=== PATIENT | male | born 2000 | race Caucasian/White ===

== ENCOUNTER 2021-04-01 09:41 | Day surgery (SDC) | payer OTHER, SELFPAY ==
[2021-03-24 13:55] VITALS: BMI 27.0
--- NOTE | 2021-03-31 10:43 | HO.ANESPROP2 ---
Documented by User: Marlee Jacobo NP 03/31/21 10:45 HPI - Anesthesia Eval Consult details Narrative: 20yo M for Bilateral Horizontal Eye Muscle Recession/Resection,1 muscle per eye bilateral PCP cleared [facility] Past Medical History Medical History (Updated 03/24/21 @ 13:42 by Alicia Akhtar, RN) No pertinent past medical history Surgical History Surgical History (Updated 04/01/21 @ 12:13 by Terri Ribera MD) History of dental surgery No pertinent past surgical history Social History Social History (Updated 04/01/21 @ 12:14 by Terri Ribera MD) Household Members Other:: Parents Are you a primary senior care specialist to a significant other at home: No Do you presently have visiting nurse or other home services: No Patient Tobacco Use Status: Never used Tobacco Use of substances other than those prescribed or required for medical reasons: Yes Substance Use Type: Marijuana Substance Use Frequency: Occasionally Last Used Substance: Days (ago) Have you been hit, kicked, punched, or otherwise hurt by someone within the past year? If so, by whom?: No Are you DNR?: No Advance Directives: No Advance Directives Information Provided: No Advance Directives on File: No Recently lost weight without trying: No Eating poorly because of decreased appetite: No Nutrition Risks: No Nutritional Risk Meds Allergies Allergy/AdvReac Type Severity Reaction Status Date / Time No Known Allergies Allergy Verified 03/24/21 13:43 Home Medications Medication Instructions Recorded Confirmed Last Taken Type No Known Home Meds 03/24/21 03/24/21 Unknown History Exam Exam Date and Time: March 31, 2021 1043 Height,Weight and Vital Signs: Height 5 ft 6 in Weight 76 kg Assessment and Plan Assessment Anesthesia Assessment: Chart Reviewed Documented by User: Terri Ribera MD 04/01/21 13:24 [facility] Past Medical History Medical History (Updated 03/24/21 @ 13:42 by Alicia Akhtar RN) No pertinent past medical history Family History Family history of problems with anesthesia: No Surgical History Surgical History (Updated 04/01/21 @ 12:13 by Terri Ribera MD) History of dental surgery No pertinent past surgical history History of Problems with Anesthesia: No Social History Social History (Updated 04/01/21 @ 12:14 by Terri Ribera MD) Household Members Other:: Parents Are you a primary senior care specialist to a significant other at home: No Do you presently have visiting nurse or other home services: No Patient Tobacco Use Status: Never used Tobacco Use of substances other than those prescribed or required for medical reasons: Yes Substance Use Type: Marijuana Substance Use Frequency: Occasionally Last Used Substance: Days (ago) Have you been hit, kicked, punched, or otherwise hurt by someone within the past year? If so, by whom?: No Are you DNR?: No Advance Directives: No Advance Directives Information Provided: No Advance Directives on File: No Recently lost weight without trying: No Eating poorly because of decreased appetite: No Nutrition Risks: No Nutritional Risk Meds Allergies Allergy/AdvReac Type Severity Reaction Status Date / Time No Known Allergies Allergy Verified 03/24/21 13:43 Home Medications Medication Instructions Recorded Confirmed Last Taken Type No Known Home Meds 03/24/21 03/24/21 Unknown History Exam Height,Weight and Vital Signs: Height 5 ft 6 in Weight 76 kg Vital Signs Temp Pulse Resp BP Pulse Ox 04/01/21 10:10 98.3 F 85 18 137/56 L 98 Airway Mallampati Class: II TM Dist: >3cm Neck ROM: Full Heart: RRR Lungs: CTAB Assessment and Plan Assessment Anesthesia Assessment: Anesthesia Plan Discussed Final Anesthetic Review Family History of Problems with Anesthesia: No History of Problems with Anesthesia: No NPO: Yes ASA Class: I Final Preanesthetic Review: No Changes in Pt Med Stat, Meds/Allgs Chart Reviewed, Consent Obtained/Reviewed and Anes Risks/Benef Reviewed Patient Risk: Low Procedure Risk: Low Assessment/Block/Sedation in SS: Assess/Block/Sedation-SS Anesthetic Plan Anesthetic Plan: GA and Epidural Disposition: Standard PACU
[2021-04-01] VITALS (7 sets, daily range): BP systolic 92–148; BP diastolic 41–56; PULSE 78–104; RESP 14–18; TEMP 36.6–36.8; O2SAT 97–100
[2021-04-01] MEDS: Lactated Ringers 1,000 ML 100 ML IVCONT (10:16)
[2021-04-01] MEDS: Tetracaine HCl/PF 0.5% Oph Sol 4 ML DROPS 1 DROP EYE-BOTH ×2 (13:22→13:48)
--- NOTE | 2021-04-01 14:25 | P.OPHTHAL_ITS ---
Ophthalmology Operative Note Date of Service: 04/01/21 Narrative: Diagnosis esotropia procedure bilateral medial rectus recessions of [address] Salcedo. Anesthesia general. Complications none. The patient was brought to the operating room placed under general anesthesia. The patient's eyes were prepped and draped in the usual sterile ophthalmic fashion. A lid speculum was placed in the right eye and incisions made at bare sclera in the inferonasal fornix. The medial rectus muscle was hooked and secured with a double-armed Vicryl suture. The muscle was then disinserted from the globe and reattached to a position 6 mm behind the original insertion using a hang back te chnique. Conjunctiva was closed with interrupted Vicryl sutures. An identical procedure was then performed on the left eye. The patient was then woken from general anesthesia and discharged to postoperative recovery in good condition.
== END 2021-04-01 14:11 | disposition home or self-care (01) ==
PROVIDERS: PCP Internal Medicine; Visit Provider Ophthalmology
PROC: (CPT 67311; principal; 2021-04-01 11:40)
DX: H53.2 Diplopia (principal); H50.00 Unspecified esotropia
CPT/HCPCS: 67311; J1100; J1885; J2250; J2405; J3010